=== PATIENT | male | born 1960 | race African-American/Black ===

== ENCOUNTER 2025-02-21 00:46 | Emergency (ER) | payer OTHER, SELFPAY ==
[2025-02-21 00:49] VITALS: BP 195/126
[2025-02-21 01:22] LABS: % Basophils 0.8 % (0-2); % Eosinophils 2.1 % (0-6); % Immature Granulocytes 0.3 % (0-0.5); % Lymphocytes 31.4 % (20.5-51.1); % Monocytes 8.3 % (1.7-9.3); % Neutrophils 57.1 % (42.2-75.2); Absolute Basophils 0.1 10^3/uL (0-0.2); Absolute Eosinophils 0.1 10^3/uL (0-0.7); Absolute Lymphocytes 1.9 10^3/uL (1.2-3.4); Absolute Monocytes 0.5 10^3/uL (0.1-0.6); Absolute Neutrophils 3.5 10^3/uL (1.4-6.5); Hematocrit 46.1 % (39.0-52.0); Hemoglobin 15.8 g/dL (13.0-18.0); Mean Corp Hgb Conc. 34.3 g/dL (33.0-37.0); Mean Corpuscular Hgb 30.3 pg (27.0-31.0); Mean Corpuscular Volume 88.5 fL (80.0-94.0); Mean Platelet Volume 11.9 fL (7.4-10.4); Nucleated Red Blood Cells % 0 % (-); Platelet Count 252 10^3/uL (130-400); Red Blood Cell Count 5.21 10^6/uL (4.70-6.10); Red Cell Dist. Width 13.6 % (11.5-14.5); White Blood Cell Count 6.1 10^3/uL (4.8-10.8)
[2025-02-21 01:31] LABS: ALT (SGPT) 20 U/L (0-50); AST (SGOT) 22 U/L (17-59); Albumin 5.6 g/dl (3.5-5.0); Alkaline Phosphatase 74 U/L (38-126); Blood Urea Nitrogen 16 mg/dl (9-20); Calcium 10.4 mg/dl (8.4-10.2); Carbon Dioxide 25 mmol/L (22-30); Chloride 107 mmol/L (98-107); Glucose 109 mg/dl (70-99); Potassium 4.4 mmol/L (3.5-5.1); Sodium 145 mmol/L (135-145); Total Bilirubin 0.8 mg/dl (0.2-1.3); eGFR > 60.00
[2025-02-21 01:42] LABS: Troponin I < 0.012 ng/ml
[2025-02-21 02:14] VITALS: BP 197/102
[2025-02-21 02:16] VITALS: BMI 22.6
[2025-02-21 03:00] VITALS: BP 157/84
--- NOTE | 2025-02-21 03:35 | ED.GENMED ---
History of Present Illness
General
Chief Complaint: Heart Rate Problem
Source: patient and previous hospital records
Exam Limitations: none
Time Seen by Provider: 02/21/25 03:17
Nursing documentation reviewed up to this point in time: agreed with
History of Present Illness
History of Present Illness:
This is a 64-year-old gentleman who has history of hypertension, hyperlipidemia, anxiety. Maintained on [id number] supplements for hypertension and hyperlipidemia. Patient states his lipid panel is generally well-controlled with previous
rice, coenzyme Q 10 and states his blood pressure is for the most part controlled with citrus bergamot but does admit that his blood pressure is sometimes elevated, 140s to 150s.
4 days ago he noticed some palpitations while getting out of the shower which she describes as a sense of his heart skipping beats. No other associated symptoms. Intermittent palpitations lasted perhaps 1/2-hour and resolved. He felt well over
the weekend but then recurrent brief episodes of palpitations throughout the day yesterday, Thursday. He also noted that his blood pressure was elevated. He did start a new supplement containing garlic for his blood pressure a few days ago and is
unsure if this is the culprit. He admits to 1 cup of caffeinated coffee per day. He denies stimulants nor drug use. He smokes perhaps 4 cigars/week.
He has had no chest pain, no dizziness or lightheadedness, no coughing or shortness of breath, no headache, no neck or back pain. Appetite has been good.
He does admit to moderate anxiety, worry regarding palpitations.
He had similar episode of palpitations perhaps 4 years ago, evaluated at [place] [facility], unremarkable workup.
Upon review of our records on each ED visit noted to have significantly elevated blood pressure.
Past History
Past History
ED Past Medical History: HTN, Hypercholesterolemia and Psychiatric (Anxiety)
ED Past Surgical History: Orthopedic
Social History
Tobacco: Smoker (Smokes 4 cigars/week)
Alcohol: Occasional
Drug: None
Personal: Single
Living: alone
Employment: Retired
Family History
Family History: Hypertension
Phy Exam
Physical Exam
Physical Exam:
GENERAL: 64-year-old gentleman appears his stated age, bright and alert, pleasant, easily communicative and appears in no acute distress.
EYE: pupils equal, anicteric
NECK: Supple, nontender, no meningismus, no significant adenopathy.
ENT: posterior pharynx is clear, oral mucosa is moist. TM clear b/l, nares patent.
CARDIAC: Regular rate and rhythm. no murmur.
LUNGS: Clear breath sounds bilaterally, no acute respiratory distress, no wheezes/rales/rhonchi
ABDOMEN: Soft, nondistended, without focal tenderness, normoactive BS.
NEUROLOGICAL: Alert and oriented x3, no focal neuro deficits. Gait is andersen and steady.
SKIN: Warm and dry, normal color, skin intact. No rash.
MUSCULOSKELETAL: No C/C/E. peripheral pulses are full and equal b/l. No palpable tenderness.
PSYCH: Normal and appropriate interaction.
Course
Orders/Labs/Results
Orders:
Orders
02/21/25 00:52
Electrocardiogram (*1) Urgent
Reason for Study: Other
Other Reason for Exam: IRREGULAR INTERMITTANT HEART BEAT
02/21/25 00:53
EKG- Treatment ONCE
02/21/25 00:59
Complete Blood Count/With Diff Urgent
Comprehensive Metabolic Panel Urgent
TSH Reflex To Free T4 Urgent
Comment: ADD ON
Troponin I Urgent
02/21/25 03:21
Add On- LAB Urgent
Tests Added?: TSH w reflex to free T-4
02/21/25 03:33
Metoprolol Xl [Toprol Xl] 12.5 mg PO NOW STA
Abnormal Lab Results
02/21/25
00:59
MPV 11.9 H fL
(7.4-10.4)
Glucose 109 H mg/dl
(70-99)
Calcium 10.4 H mg/dl
(8.4-10.2)
Total Protein 9.0 H g/dl
(6.3-8.2)
Albumin 5.6 H g/dl
(3.5-5.0)
02/21/25 00:59
02/21/25 00:59
Vital Signs
Initial and Last Documented VS:
Initial Vital Signs
Temp Pulse Resp BP Pulse Ox
97.4 F 106 22 195/126 100
02/21/25 00:49 02/21/25 00:49 02/21/25 00:49 02/21/25 00:49 02/21/25 00:49
Last Documented Vital Signs
Temp Pulse Resp BP Pulse Ox
97.4 F 68 15 165/83 98
02/21/25 00:49 02/21/25 04:00 02/21/25 04:00 02/21/25 04:00 02/21/25 04:00
MDM/Problems Addressed
Differential Diagnosis Includes:
Patient presents with intermittent palpitations, concern for PVCs/PAC, tachyarrhythmia. Reassuring that he has had no other associated symptoms.
Is noted to be moderately hypertensive. Blood pressure has improved currently 157/84.
Concern for potential endorgan damage thus labs obtained which thus far unremarkable. Normal renal function. Normal troponin.
Will add thyroid function, assess for potential thyroid disorder.
EKG is unremarkable, normal and unchanged from previous August 2023.
Monitor shows normal sinus rhythm without arrhythmia.
Patient does have history of hypertension and I suspect an element of chronic hypertension, we discussed initiation of an antihypertensive medication, recommend initiation of low-dose beta-marcia which may help with palpitations, help with anxiety
and also help with hypertension.
Patient agreeable to low-dose metoprolol succinate will start at 12.5 mg daily.
Recommend discontinuing caffeine use. Discontinue garlic supplement as this may be contributing to his symptoms.
Encourage prompt follow-up with PCP for recheck.
Chronic conditions affecting care: HTN and Psychiatric illness
Acute Exacerbation and/or Progression of Chronic Illness: HTN
*Pulse Oximetry
Patient hypoxic: no
*EKG
Interpreted by ED Provider?: Yes
Interpretation: normal
Comparison EKG: no changes
Rate: normal
Rhythm: sinus
[place]: normal axis
Interval: normal interval
QRS Pattern: normal QRS
Ischemia: no ischemia
*Sales And Marketing Assistant Interpretation
Rate: normal
Interpretation: normal
Rhythm: sinus
*Critical Care Note
Total Time (30-74mins, 75-104mins- exclusive of procedures): Not Applicable
ED Attending Note
-
Portions of this chart may have been created with voice recognition software.� Occasional wrong word or��sound alike� substitutions may have occurred due to the inherent limitations of voice recognition software.
Discharge Plan
Departure
Patient Disposition: Home (Routine Discharge)
Date of Disposition: 02/21/25
Time of Disposition: 04:43
Patient with high blood pressure during this ER visit?: Yes
Condition: Good
Discharge Problem:
Heart palpitations, Accelerated essential hypertension
Instructions: Controlling your blood pressure through lifestyle, Palpitations (DC), High blood pressure - ED discharge instructions
Prescriptions:
New
metoprolol succinate 25 mg tablet extended release 24 hr
12.5 mg PO DAILY Qty: 30 0RF
No Action
alprazolam [Xanax] 0.25 mg tablet
0.25 mg PO BID PRN (Reason: anxiety) Qty: 10 0RF
Referrals:
Yon Hobbs MD [Family Provider] - Call in 1-3 days for appt
Interventions
Interventions:
*Risk Screen - Suicide Last Done: 02/21/25 00:49
*General Assessment Last Done: 02/21/25 02:16
*Neglect/Abuse Screening Last Done: 02/21/25 00:49
*ED- Fall Risk Assessment Last Done: 02/21/25 02:16
*ED COVID-19 Vaccine History Last Done: 02/21/25 02:16
ED- Cardiac Assessment Last Done: 02/21/25 02:16
ED- Pulmonary Assessment Last Done: 02/21/25 02:16
Discharge Date and Time
Print Language: CHINESE
[2025-02-21 03:43] VITALS: BP 164/88
[2025-02-21] MEDS: TOPROL XL 12.5 MG PO (03:44)
[2025-02-21 04:00] VITALS: BP 165/83
[2025-02-21 04:50] VITALS: BP 175/96
== END 2025-02-21 04:59 | disposition home or self-care (01) ==
LOC: EMR 00:46
PROVIDERS: EMERGENCY PHYSICIAN Emergency Medicine; FAMILY PHYSICIAN Family Medicine
DX: R00.2 Palpitations (principal); I10 Essential (primary) hypertension; E78.00 Pure hypercholesterolemia, unspecified; F41.9 Anxiety disorder, unspecified; F17.290 Nicotine dependence, other tobacco product, uncomplicated; Z86.16 Personal history of COVID-19
CPT/HCPCS: 99284; 80053; 84443; 84484; 85025; 93005